=== PATIENT | female | born 1975 | race African-American/Black ===

== ENCOUNTER 2024-08-11 07:08 | Emergency (ER) | payer MEDICAID ==
[~2024-08-11] VITALS: Ht 170.2 cm; Wt 73.0 kg
[2024-08-11 07:10] VITALS: O2SAT 99
[2024-08-11 08:42] VITALS: TEMP 97.2
[2024-08-11] MEDS: ACETAMINOPHEN 325MG TABLET PO NR (08:42)
[2024-08-11 10:03] VITALS: PULSE 58
[2024-08-11] MEDS: KETOROLAC 15MG/ML VIAL IM ONE (10:03)
[2024-08-11 11:00] VITALS: BP 139/58; RESP 16
[2024-08-11] MEDS: LIDOCAINE 5% PATCH TOP SCH (11:00)
== END 2024-08-11 11:23 | disposition home or self-care (01) ==
LOC: ER 07:08
DX: M75.31 Calcific tendinitis of right shoulder (principal); R91.1 Solitary pulmonary nodule; I10 Essential (primary) hypertension; F12.90 Cannabis use, unspecified, uncomplicated; Z98.890 Other specified postprocedural states
CPT/HCPCS: 81025; 73030; 71250; 96372; 99285; J1885; Z7610

== ENCOUNTER 2025-02-22 11:19 | Emergency (ER) | payer MEDICAID ==
[~2025-02-22] VITALS: Ht 165.1 cm; Wt 82.0 kg
[2025-02-22 11:30] VITALS: O2SAT 100
[2025-02-22] MEDS: BALANCED SALT IRRIG SOLN 15ML IR ONE (11:53)
[2025-02-22] MEDS: FLUORESCEIN SODIUM 1MG/STRIP LEFTEYE ONE (11:54)
[2025-02-22] MEDS: TETRACAINE 0.5% OPHTH DROPS 4ML LEFTEYE ONE (11:54)
[2025-02-22] MEDS ORDERED: TOBRAMYCIN/DEXAMETH 0.1/0.3% OPHTH SUSP 2.5ML LEFTEYE STA (12:52)
[2025-02-22 12:54] LABS: BASOPHILS % 0.7 % (0.0-2.0); EOSINOPHILS % 3.2 % (0.0-5.0); HEMATOCRIT. 37.6 % (36.0-48.0); HEMOGLOBIN. 12.7 g/dL (12.0-16.0); MEAN CORPUSCULAR HEMOGLOBIN 29.8 pg (28.0-32.0); MEAN CORPUSCULAR HGB CONC 33.7 g/dL (31.0-37.0); MEAN CORPUSCULAR VOLUME 88.4 fL (81.0-99.0); MEAN PLATELET VOLUME 8.3 fl (7.4-10.4); MONOCYTES % 8.6 % (2.0-8.0); NEUTROPHILS % 58.5 % (40.0-76.0); PLATELET 259 x1000/uL (130-400); RED BLOOD CELL COUNT 4.25 mill/uL (4.2-5.4); RED CELL DISTRIBUTION WIDTH 14.3 % (11.6-14.6); WHITE BLOOD COUNT 5.2 x1000/uL (4.5-11.0)
[2025-02-22 13:04] LABS: CHLORIDE 102 mEq/L (98-107); POTASSIUM 2.9 mEq/L (3.5-5.1); SODIUM 141 mEq/L (136-145)
[2025-02-22 13:05] LABS: CARBON DIOXIDE 32 mEq/L (21-32)
[2025-02-22 13:06] LABS: CALCIUM 9.8 mg/dL (8.7-10.4); PROTHROMBIN TIME 10.3 sec (9.6-11.0)
[2025-02-22 13:10] LABS: CREATININE 0.6 mg/dL (0.6-1.0); GLUCOSE 121 mg/dL (70-105)
[2025-02-22 13:11] LABS: UREA NITROGEN BLOOD 8 mg/dL (9-23)
[2025-02-22 13:12] LABS: ALANINE AMINOTRANSFERASE 37 IU/L (10-49); ALBUMIN 4.1 g/dL (3.2-4.8); ASPARTATE AMINOTRANSFERASE 35 IU/L (<34)
[2025-02-22 13:13] LABS: BILIRUBIN TOTAL 0.4 mg/dL (0.1-1.0); PROTEIN TOTAL 7.1 g/dL (6.0-8.3)
[2025-02-22] MEDS ORDERED: TOBRDO LEFTEYE (13:18)
[2025-02-22] MEDS: POTASSIUM CHLORIDE 20MEQ TABLET SR PO ONE (13:30)
[2025-02-22] MEDS ORDERED: TOBR3.5O LEFTEYE (13:55)
[2025-02-22] MEDS: TOBRAMYCIN 0.3% OPHTH DROPS 5ML LEFTEYE STA (14:16)
[2025-02-22 15:15] VITALS: BP 145/102; PULSE 89; RESP 16; TEMP 37; O2SAT 97
== END 2025-02-22 15:16 | disposition home or self-care (01) ==
LOC: ER 11:53
DX: H16.002 Unspecified corneal ulcer, left eye (principal); I10 Essential (primary) hypertension
CPT/HCPCS: 36415; 80053; 85025; 93005; 99284

== ENCOUNTER 2025-10-11 08:31 | Emergency (ER) | payer MEDICAID ==
[~2025-10-11] VITALS: Ht 165.1 cm; Wt 75.0 kg
[~2025-10-11 08:31] MED LIST: TOBR3.5O LEFTEYE
[2025-10-11 08:33] VITALS: BP 161/77; PULSE 110; RESP 16; TEMP 98.4; O2SAT 100
[2025-10-11] MEDS: FLUORESCEIN SODIUM 1MG/STRIP BOTHEYE ONE (09:56)
[2025-10-11] MEDS: TETRACAINE 0.5% OPHTH DROPS 4ML BOTHEYE ONE (09:56)
[2025-10-11] MEDS ORDERED: CLAR10 MT (13:24)
[2025-10-11] MEDS ORDERED: TOPUD MT (13:24)
[2025-10-11] MEDS ORDERED: SULF15DR26 EACHEYE (13:24)
== END 2025-10-11 13:55 | disposition home or self-care (01) ==
LOC: ER 09:14
DX: H10.9 Unspecified conjunctivitis (principal); I10 Essential (primary) hypertension; H57.13 Ocular pain, bilateral; F12.90 Cannabis use, unspecified, uncomplicated; Z79.899 Other long term (current) drug therapy
CPT/HCPCS: 99283